=== PATIENT | female | born 1935 | race African-American/Black ===

== ENCOUNTER 2019-08-05 08:13 | Inpatient (IN) | payer MEDICARE, BC ==
[~2019-08-05] VITALS: Ht 154.9 cm; Wt 47.2 kg
[2019-08-05 10:12] LABS: BASOPHILS % 0.9 % (0.0-2.0); EOSINOPHILS % 3.2 % (0.0-5.0); HEMATOCRIT. 34.4 % (36.0-48.0); HEMOGLOBIN. 11.6 g/dL (12.0-16.0); LYMPHOCYTES % 13.9 % (20.0-50.0); MEAN CORPUSCULAR HEMOGLOBIN 28.3 pg (28.0-32.0); MEAN CORPUSCULAR VOLUME 84.3 fL (81.0-99.0); MEAN PLATELET VOLUME 6.7 fl (7.4-10.4); MONOCYTES % 6.7 % (2.0-8.0); NEUTROPHILS % 75.3 % (40.0-76.0); PLATELET 347 x1000/uL (130-400); RED BLOOD CELL COUNT 4.08 mill/uL (4.2-5.4); RED CELL DISTRIBUTION WIDTH 13.1 % (11.6-14.6)
[2019-08-05 10:13] LABS: CHLORIDE 94 mEq/L (98-107)
[2019-08-05] MEDS ORDERED: TETANUS, DIPHTHERIA, PERTUSSIS VAC/PF 0.5ML (>7YR OLD) IM ONE (10:15)
[2019-08-05] MEDS ORDERED: DOCUSATE SODIUM 100MG CAPSULE PO PRN (12:45)
[2019-08-05] MEDS ORDERED: MAGNESIUM/ALUMINUM HYDROXIDE/SIMETHICONE 30ML UDC PO PRN (12:45)
[2019-08-05] MEDS ORDERED: HYDROCODONE/ACETAMINOPHEN 5/325MG TABLET PO PRN (12:45)
[2019-08-05] MEDS ORDERED: CLONIDINE 0.1MG TABLET PO PRN (12:45)
[2019-08-05] MEDS ORDERED: ENOXAPARIN 40MG/0.4ML SYR SUBCUT SCH ×2 (12:45→16:00)
[2019-08-05] MEDS ORDERED: ACETAMINOPHEN 325MG TABLET PO PRN (12:45)
[2019-08-05] MEDS ORDERED: DEXTROSE 50% WATER 50ML SYRINGE IV PRN ×2 (12:45)
[2019-08-05] MEDS: BLOOD SUGAR DIAGNOSTIC STRIP TEST SCH ×3 (13:00→21:06)
[2019-08-05] MEDS: INSULIN LISPRO 100 UNITS/ML SUBCUT SCH ×3 (13:20→21:15)
[2019-08-05 14:15] VITALS: BP 142/57
[2019-08-05 14:30] VITALS: BP 142/57
[2019-08-05 15:58] VITALS: BP 142/67
[2019-08-05] MEDS ORDERED: NAPR-681 MT (17:10)
[2019-08-05] MEDS ORDERED: METF-414 MT (17:10)
[2019-08-05] MEDS ORDERED: AMLO5TAB88 MT (17:10)
[2019-08-05] MEDS ORDERED: LISI10TA5 PO (17:10)
[2019-08-05] MEDS ORDERED: ATOR40TA70 MT (17:10)
[2019-08-05 19:27] LABS: CLARITY URINE CLEAR (CLEAR); COLOR URINE YELLOW (YELLOW); KETONES URINE 1+ (NEGATIVE); LEUKOCYTE ESTERASE URINE TRACE (NEGATIVE); NITRITE URINE NEGATIVE (NEGATIVE); OCCULT BLOOD URINE NEGATIVE (NEGATIVE); PROTEIN URINE TRACE (NEGATIVE); SPECIFIC GRAVITY URINE 1.013 (1.005-1.030); UROBILINOGEN URINE 0.2 E.U./dL (0.2-1.0)
[2019-08-05 19:43] LABS: *AMPHETAMINES SCREEN URINE NEGATIVE (NEGATIVE); *BARBITURATES SCREEN URINE NEGATIVE (NEGATIVE); *BENZODIAZEPINES SCREEN URINE NEGATIVE (NEGATIVE); *COCAINE SCREEN URINE NEGATIVE (NEGATIVE); METHADONE URINE SCREEN NEGATIVE (NEGATIVE)
[2019-08-05 19:44] LABS: CANNABINOID URINE SCREEN NEGATIVE (NEGATIVE); OPIATES URINE SCREEN NEGATIVE (NEGATIVE); PHENCYCLIDINE URINE SCREEN NEGATIVE (NEGATIVE)
[2019-08-05 20:14] VITALS: BP 128/59
[2019-08-05 20:15] VITALS: BP 138/58
[2019-08-05 20:17] VITALS: BP 127/56
[2019-08-05] MEDS: SODIUM CHLORIDE 0.9% 1,000 ML IV SCH (21:12)
[2019-08-06] VITALS (7 sets, daily range): BP systolic 113–162; BP diastolic 51–65
[2019-08-06 07:07] LABS: BASOPHILS % 0.9 % (0.0-2.0); EOSINOPHILS % 3.8 % (0.0-5.0); HEMATOCRIT. 31.5 % (36.0-48.0); HEMOGLOBIN. 10.8 g/dL (12.0-16.0); LYMPHOCYTES % 26.7 % (20.0-50.0); MEAN CORPUSCULAR HEMOGLOBIN 28.4 pg (28.0-32.0); MEAN CORPUSCULAR VOLUME 82.7 fL (81.0-99.0); MEAN PLATELET VOLUME 6.8 fl (7.4-10.4); MONOCYTES % 11.3 % (2.0-8.0); NEUTROPHILS % 57.3 % (40.0-76.0); PLATELET 339 x1000/uL (130-400); RED BLOOD CELL COUNT 3.81 mill/uL (4.2-5.4)
[2019-08-06] MEDS: BLOOD SUGAR DIAGNOSTIC STRIP TEST SCH ×4 (07:28→21:02)
[2019-08-06] MEDS: INSULIN LISPRO 100 UNITS/ML SUBCUT SCH ×4 (07:37→21:35)
[2019-08-06 08:27] LABS: CHLORIDE 94 mEq/L (98-107)
[2019-08-06 08:43] LABS: HDL CHOLESTEROL 43 mg/dL (40-59)
[2019-08-06 08:45] LABS: PHOSPHORUS 2.6 mg/dL (2.5-4.9)
[2019-08-06 08:47] LABS: LDL CHOLESTEROL 137 mg/dL (5-100)
[2019-08-06] MEDS: METFORMIN HCL 500MG TABLET PO SCH ×2 (12:34→18:03)
[2019-08-06] MEDS: AMLODIPINE 5MG TABLET PO SCH ×2 (12:35→21:31)
[2019-08-06] MEDS: SODIUM CHLORIDE 0.9% 1,000 ML IV SCH (18:04)
[2019-08-06] MEDS: ENOXAPARIN 30MG/0.3ML SYR SUBCUT SCH (18:04)
[2019-08-06] MEDS: ATORVASTATIN CALCIUM 10MG TABLET PO SCH (21:31)
[2019-08-07] VITALS (7 sets, daily range): BP systolic 118–156; BP diastolic 49–77
[2019-08-07] MEDS: BLOOD SUGAR DIAGNOSTIC STRIP TEST SCH ×4 (06:51→21:10)
[2019-08-07 07:20] LABS: EOSINOPHILS % 4.2 % (0.0-5.0); HEMATOCRIT. 32.6 % (36.0-48.0); HEMOGLOBIN. 11.1 g/dL (12.0-16.0); LYMPHOCYTES % 25.2 % (20.0-50.0); MEAN CORPUSCULAR HEMOGLOBIN 28.3 pg (28.0-32.0); MEAN CORPUSCULAR VOLUME 83.2 fL (81.0-99.0); MEAN PLATELET VOLUME 6.4 fl (7.4-10.4); MONOCYTES % 9.3 % (2.0-8.0); NEUTROPHILS % 60.3 % (40.0-76.0); PLATELET 319 x1000/uL (130-400); RED BLOOD CELL COUNT 3.92 mill/uL (4.2-5.4); RED CELL DISTRIBUTION WIDTH 13.1 % (11.6-14.6)
[2019-08-07 07:31] LABS: CHLORIDE 101 mEq/L (98-107)
[2019-08-07] MEDS: INSULIN LISPRO 100 UNITS/ML SUBCUT SCH ×4 (07:50→21:00)
[2019-08-07] MEDS ORDERED: LISINOPRIL 10MG TABLET PO SCH (09:00)
[2019-08-07] MEDS: METFORMIN HCL 500MG TABLET PO SCH ×2 (09:57→18:20)
[2019-08-07] MEDS: AMLODIPINE 5MG TABLET PO SCH ×2 (09:58→21:10)
[2019-08-07] MEDS: ENOXAPARIN 30MG/0.3ML SYR SUBCUT SCH (17:39)
[2019-08-07] MEDS: SODIUM CHLORIDE 0.9% 1,000 ML IV SCH (18:24)
[2019-08-07] MEDS: ATORVASTATIN CALCIUM 10MG TABLET PO SCH (21:10)
[2019-08-08] VITALS: BP 158/77
[2019-08-08 04:00] VITALS: BP 141/59
[2019-08-08] MEDS: BLOOD SUGAR DIAGNOSTIC STRIP TEST SCH ×2 (06:35→12:29)
[2019-08-08] MEDS: INSULIN LISPRO 100 UNITS/ML SUBCUT SCH ×2 (07:46→12:34)
[2019-08-08] MEDS: SODIUM CHLORIDE 0.9% 1,000 ML IV SCH (08:15)
[2019-08-08 08:24] VITALS: BP 162/70
[2019-08-08] MEDS: METFORMIN HCL 500MG TABLET PO SCH (09:11)
[2019-08-08] MEDS: AMLODIPINE 5MG TABLET PO SCH (09:11)
[2019-08-08 11:52] VITALS: BP 152/57
== END 2019-08-08 14:10 | disposition home health service (06) | DRG 74 ==
LOC: ER 08:13 → EDBEDREQ 12:30 → ENRESERV 12:55 → 6WST 14:08
PROVIDERS: ADMIT Specialist; ATTEND Specialist
PROC: 0HQ0XZZ Repair Scalp Skin, External Approach (ICD-10-PCS; principal; 2019-08-05)
PROC: 4A00X4Z Measurement of Central Nervous Electrical Activity, External Approach (ICD-10-PCS; 2019-08-07)
DX: G90.8 Other disorders of autonomic nervous system (principal); E87.1 Hypo-osmolality and hyponatremia; E46 Unspecified protein-calorie malnutrition; Z68.1 Body mass index [BMI] 19.9 or less, adult; R55 Syncope and collapse; I10 Essential (primary) hypertension; E11.9 Type 2 diabetes mellitus without complications; S01.01XA Laceration without foreign body of scalp, initial encounter; D64.9 Anemia, unspecified; E78.00 Pure hypercholesterolemia, unspecified; R26.9 Unspecified abnormalities of gait and mobility; E78.5 Hyperlipidemia, unspecified; W18.39XA Other fall on same level, initial encounter; Y93.E8 Activity, other personal hygiene; Y92.091 Bathroom in other non-institutional residence as the place of occurrence of the external cause; Y99.8 Other external cause status
CPT/HCPCS: 12001; 36415; 70544; 70553; 71045; 80048; 80061; 80076; 80305; 80320; 81003; 82533; 82962; 83036; 83735; 83880; 83930; 83935; 84100; 84443; 84484; 90471; 90715; 93005; 93306; 93880; 93970; 97116; 97162; 97535; 99285; C1893; J1650; J1815; J7030; G0480